=== PATIENT | female | born 1995 | race Caucasian/White ===

== ENCOUNTER 2019-01-30 14:04 | Observation (INO) | payer OTHER ==
[2019-01-30] MEDS ORDERED: DIPHENHYDRAMINE HCL 50 MG/ML VIAL IV ONE (14:50)
[2019-01-30] MEDS ORDERED: METOCLOPRAMIDE HCL INJ/PF 10 MG/2 ML SDV IV ONE (14:50)
--- NOTE | 2019-01-30 14:52 | ER Document Report ---
ED Medical Screen (RME) - General Chief Complaint: Abdominal Pain Stated Complaint: VOMITING Time Seen by Provider: 01/30/19 14:49 Mode of Arrival: Ambulatory Information source: Patient Notes: 23-year-old female presented to ED complaint of nausea vomiting diarrhea with stomach cramps since 10 AM. She states she is vomiting constantly having constant stools. She states she is not sure she is she is been off of her control for about 3 months. She states that she previously would get sick after her period every month and they put her on control to stop that but she is been off her control for 3 months at this time. She states she does not smoke drink or use any drugs. She has no medical history or surgical history except for what is already stated. She is alert oriented respirations regular and unlabored speaking in full sentences walks with even steady gait. TRAVEL OUTSIDE OF THE [place] IN LAST 30 DAYS: No - Related Data Allergies/Adverse Reactions: No Known Allergies Allergy (Verified 01/30/19 14:23) Physical Exam - Vital signs Vitals: Pulse Resp BP Pulse Ox 86 20 123/87 H 95 01/30/19 14:24 01/30/19 14:24 01/30/19 14:24 01/30/19 14:24 Course - Vital Signs Vital signs: Temp Pulse Resp BP Pulse Ox 86 20 123/87 H 95 01/30/19 14:24 01/30/19 14:24 01/30/19 14:24 01/30/19 14:24
--- NOTE | 2019-01-30 14:57 | ER Document Report ---
ED GI/ - General Chief Complaint: Abdominal Pain Stated Complaint: VOMITING Time Seen by Provider: 01/30/19 14:49 Mode of Arrival: Ambulatory Information source: Patient Notes: 23-year-old female presented to ED complaint of nausea vomiting diarrhea with stomach cramps since 10 AM. She states she is vomiting constantly having constant stools. She states she is not sure she is she is been off of her control for about 3 months. She states that she previously would get sick after her period every month and they put her on control to stop that but she is been off her control for 3 months at this time. She states she does not smoke drink or use any drugs. She has no medical history or surgical history except for what is already stated. She is alert oriented respirations regular and unlabored speaking in full sentences walks with even steady gait. TRAVEL OUTSIDE OF THE [place] IN LAST 30 DAYS: No - HPI Patient complains to provider of: Abdominal pain - Cramping when throwing up otherwise no pain, Diarrhea, Vomiting Onset: This morning Timing/Duration: Intermittent Quality of pain: Cramping Severity at maximum: Moderate Severity in ED: Moderate Pain Level: 3 Location: Epigastric, LUQ, LLQ, RUQ, RLQ Vaginal bleeding (Compared to normal period): None Associated symptoms: Diarrhea, Lightheaded, Nausea, Vomiting Exacerbated by: Denies Relieved by: Denies Similar symptoms previously: Yes Recently seen / treated by doctor: No - Related Data Allergies/Adverse Reactions: No Known Allergies Allergy (Verified 01/30/19 14:23) Past Medical History - General Information source: Patient - Social History Smoking Status: Never Smoker Frequency of alcohol use: None Drug Abuse: None Lives with: Family Family History: Reviewed & Not Pertinent Patient has suicidal ideation: No Patient has homicidal ideation: No - Past Medical History Cardiac Medical History: Reports: None Pulmonary Medical History: Reports: None EENT Medical History: Reports: None Neurological Medical History: Reports: None Endocrine Medical History: Reports: None Renal/ Medical History: Reports: None Malignancy Medical History: Reports: None GI Medical History: Reports: None Musculoskeletal Medical History: Reports None Skin Medical History: Reports None Psychiatric Medical History: Reports: None Traumatic Medical History: Reports: None Infectious Medical History: Reports: None Surgical Hx: Negative Past Surgical History: Reports: None - Immunizations Immunizations up to date: Yes Review of Systems - Review of Systems Constitutional: No symptoms reported EENT: No symptoms reported Cardiovascular: No symptoms reported Respiratory: No symptoms reported Gastrointestinal: Abdominal pain, Diarrhea, Nausea, Vomiting, Poor appetite Genitourinary: No symptoms reported Female Genitourinary: No symptoms reported Musculoskeletal: No symptoms reported Skin: No symptoms reported Hematologic/Lymphatic: No symptoms reported Neurological/Psychological: No symptoms reported -: Yes All other systems reviewed and negative Physical Exam - Vital signs Vitals: Pulse Resp BP Pulse Ox 86 20 123/87 H 95 01/30/19 14:24 01/30/19 14:24 01/30/19 14:24 01/30/19 14:24 Interpretation: Normal - General General appearance: Appears well, Alert - HEENT Head: Normocephalic, Atraumatic Eyes: Normal Pupils: PERRL - Respiratory Respiratory status: No respiratory distress Chest status: Nontender Breath sounds: Normal Chest palpation: Normal - Cardiovascular Rhythm: Regular Heart sounds: Normal auscultation Murmur: No - Abdominal Inspection: Normal Distension: No distension Bowel sounds: Hyperactive Tenderness: Tender Organomegaly: No organomegaly - Genitourinary External exam: Normal Speculum exam: Cervix closed, Vaginal discharge - white Vaginal bleeding: None Bimanuel exam: Normal - Back Back: Normal, Nontender - Extremities General upper extremity: Normal inspection, Nontender, Normal color, Normal ROM, Normal temperature General lower extremity: Normal inspection, Nontender, Normal color, Normal ROM, Normal temperature, Normal weight bearing. No: Jacqueline's sign - Neurological Neuro grossly intact: Yes Cognition: Normal Orientation: AAOx4 [place] Coma Scale Eye Opening: Spontaneous [place] Coma Scale Verbal: Oriented [place] Coma Scale Motor: Obeys Commands Yuri Coma Scale Total: 15 Speech: Normal Motor strength normal: LUE, RUE, LLE, RLE Sensory: Normal - Psychological Associated symptoms: Normal affect, Normal mood - Skin Skin Temperature: Warm Skin Moisture: Dry Skin Color: Normal Course - Re-evaluation Re-evalutation: 01/30/19 19:[address] Hong several times during this visit due to the elevated white count continue nausea and vomiting abdominal pain. He did come over and examined the patient we did do a CT abdomen and pelvis with IV contrast which was no acute changes. Ultrasound of upper abdominal was done with no acute fi ndings. She does have a elevated white count. I have spoken with the hospitalist who is going to admit her for intractable vomiting. - Vital Signs Vital signs: Temp Pulse Resp BP Pulse Ox 97.3 F 86 20 123/87 H 95 01/30/19 14:51 01/30/19 14:24 01/30/19 14:24 01/30/19 14:24 01/30/19 14:24 - Laboratory Result Diagrams: 01/30/19 15:25 01/30/19 15:25 Laboratory results interpreted by me: 01/30/19 01/30/19 01/30/19 15:25 15:25 16:03 WBC 23.7 H MCH 26.7 L RDW 14.4 H Seg Neuts % (Manual) 89 H Band Neutrophils % 2 L Lymphocytes % (Manual) 4 L Abs Neuts (Manual) 21.6 H Carbon Dioxide 20 L Glucose 156 H Total Protein 8.3 H Urine Protein 30 H Urine Ketones 80 H Ur Leukocyte Esterase SMALL H Urine Ascorbic Acid 40 H - Diagnostic Test Radiology reviewed: Image reviewed, Reports reviewed - Consults juaquin Time consulted: 19:28 Consulted provider: will see as inpatient Discharge - Discharge Clinical Impression: Intractable vomiting with nausea Qualifiers: Vomiting type: unspecified Qualified Code(s): R11.2 - Nausea with vomiting, unspecified Condition: Stable Disposition: ADMITTED INPATIENT Admitting Provider: Juaquin (Hospitalist) Unit Admitted: Medical Floor
[2019-01-30] MEDS: RINGERS SOLUTION,LACTATED 1,000 ML IV PRN ×2 (15:19→18:57)
[2019-01-30 15:57] LABS: ALBUMIN 4.9 g/dL (3.5-5.0); ALKALINE PHOSPHATASE 78 U/L (38-126); ANION GAP 16 (5-19); ASPARTATE AMINO TRANSFERASE 31 U/L (14-36); BILIRUBIN,DIRECT 0.2 mg/dL (0.0-0.4); BILIRUBIN,TOTAL 0.5 mg/dL (0.2-1.3); BLOOD UREA NITROGEN 13 mg/dL (7-20); CALCIUM 10.1 mg/dL (8.4-10.2); CARBON DIOXIDE 20 mmol/L (22-30); CHLORIDE 104 mmol/L (98-107); GLUCOSE 156 mg/dL (75-110); HEMATOCRIT 38.6 % (36.0-47.0); MEAN CORPUSCULAR HEMOGLOBIN 26.7 pg (27.0-33.4); MEAN CORPUSCULAR HGB CONC 33.6 g/dL (32.0-36.0); MEAN CORPUSCULAR VOLUME 80 fl (80-97); PLATELET COUNT 302 10^3/uL (150-450); RED BLOOD COUNT 4.85 10^6/uL (3.72-5.28); RED CELL DISTRIBUTION WIDTH 14.4 % (11.5-14.0); TOTAL PROTEIN 8.3 g/dL (6.3-8.2); WHITE BLOOD COUNT 23.7 10^3/uL (4.0-10.5)
[2019-01-30 16:28] LABS: APPEARANCE,URINE SLIGHTLY-CLOUDY; BILIRUBIN,URINE NEGATIVE (NEGATIVE); COLOR,URINE YELLOW; GLUCOSE, URINE NEGATIVE (NEGATIVE); KETONES,URINE 80 mg/dL (NEGATIVE); LEUKOCYTE ESTERASE,URINE SMALL (NEGATIVE); NITRITE,URINE NEGATIVE (NEGATIVE); PROTEIN,URINE 30 mg/dL (NEGATIVE); URINE SPECIFIC GRAVITY 1.027; UROBILINOGEN,URINE NEGATIVE mg/dL (<2.0)
[2019-01-30] MEDS ORDERED: ONDANSETRON HCL INJ/PF 4 MG/2 ML SDV IV ONE ×3 (16:31→19:29)
[2019-01-30 16:32] LABS: ABSOLUTE LYMPHOCYTES# (MANUAL) 0.9 10^3/uL (0.5-4.7); ABSOLUTE MONOCYTES # (MANUAL) 1.2 10^3/uL (0.1-1.4); ANISOCYTOSIS SLIGHT; BAND NEUTROPHILS % (MANUAL) 2 % (3-5); BASOPHILS % (MANUAL) 0 % (0-2); EOSINOPHILS % (MANUAL) 0 % (0-6); LYMPHOCYTES % (MANUAL) 4 % (13-45); MONOCYTES % (MANUAL) 5 % (3-13); PLATELET COMMENT ADEQUATE; SEGMENTED NEUTROPHILS % (MAN) 89 % (42-78); TOTAL CELLS COUNTED 100; TOXIC GRANULATION SLIGHT; TOXIC VACUOLATION PRESENT
[2019-01-30] MEDS ORDERED: PROMETHAZINE HCL 25 MG TABLET PO ONE (17:48)
[2019-01-30] MEDS ORDERED: PROMETHAZINE HCL 25 MG SUPP.RECT PR ONE (17:49)
--- NOTE | 2019-01-30 18:18 | RADIOLOGY REPORT (SQ) ---
EXAM DESCRIPTION: U/S ABDOMEN LIMITED W/O DOP COMPLETED DATE/TIME: 01/30/2019 5:54 pm REASON FOR STUDY: nvd upper abd pain COMPARISON: None. TECHNIQUE: Dynamic and static grayscale images acquired of the abdomen and recorded on PACS. Lexiio nai selected color Doppler and spectral images recorded. LIMITATIONS: None. FINDINGS: PANCREAS: No masses. Visualized pancreatic duct normal caliber. LIVER: No masses. Echotexture normal. LIVER VASCULATURE: Normal directional flow of the main portal vein and hepatic veins. GALLBLADDER: No stones. Normal wall thickness. No pericholecystic fluid. ULTRASOUND-DETECTED DE PAZ'S SIGN: Negative. INTRAHEPATIC DUCTS AND COMMON DUCT: CBD and intrahepatic ducts normal caliber. No filling defects. INFERIOR VENA CAVA: Normal flow. AORTA: No aneurysm. RIGHT KIDNEY: Normal size. Normal echogenicity. No solid or suspicious masses. No hydronephrosis. No calcifications. PERITONEAL AND RIGHT PLEURAL SPACE: No ascites or effusions. OTHER: No other significant findings. IMPRESSION: NORMAL RIGHT UPPER QUADRANT ULTRASOUND. TECHNICAL DOCUMENTATION: JOB ID: [id number]- All Rights Reserved Reading location - IP/workstation name: [email or web address]
[2019-01-30 18:58] LABS: BACTERIA (WET MOUNT) 3+ BACTERIA SEEN; T.VAGINALIS (WET MOUNT) NO TRICHOMONAS SEEN; WBCS (WET MOUNT) 2+ WBCS SEEN; YEAST (WET MOUNT) NO YEAST SEEN
--- NOTE | 2019-01-30 19:03 | RADIOLOGY REPORT (SQ) ---
EXAM DESCRIPTION: CT ABD/PELVIS WITH IV ONLY COMPLETED DATE/TIME: 01/30/2019 6:50 pm REASON FOR STUDY: abdominal pain nvd COMPARISON: None. TECHNIQUE: CT scan of the abdomen and pelvis performed using helical scanning technique with dynamic intravenous contrast injection. No oral contrast. Images reviewed with lung, soft tissue, and bone windows. Reconstructed coronal and sagittal MPR images reviewed. Delayed images for evaluation of the urinary system also acquired. All images stored on PACS. All CT scanners at this facility use dose modulation, iterative reconstruction, and/or weight based d osing when appropriate to reduce radiation dose to as low as reasonably achievable (ALARA). [facility]: Dose Right [facility]: CareDose [facility]: Dose Right [facility]: Teradose 4D [facility]: Proteus Agility CONTRAST TYPE AND DOSE: contrast/concentration: Isovue 350.00 mg/ml; Total Contrast Delivered: 74.0 ml; Total Saline Delivered: 67.0 ml RENAL FUNCTION: BUN 13; creatinine 0.64 RADIATION DOSE: CT Rad equipment meets quality standard of care and radiation dose reduction techniq ues were employed. CTDIvol: NaN - NaN mGy. DLP: 0 mGy-cm.. LIMITATIONS: None. FINDINGS: LOWER CHEST: No significant findings. No nodules or infiltrates. LIVER: Normal size. No masses. No dilated ducts. SPLEEN: Normal size. No focal lesions. PANCREAS: No masses. No significant calcifications. No adjacent inflammation or peripancreatic fluid collections. Pancreatic duct not dilated. GALLBLADDER: No identified stones by CT criteria. No inflammatory changes to suggest cholecystitis. ADRENAL GLANDS: No significant masses or asymmetry. RIGHT KIDNEY AND URETER: No solid masses. No significant calcifications. No hydronephrosis or hyd roureter. LEFT KIDNEY AND URETER: No solid masses. No significant calcifications. No hydronephrosis or hydr oureter. AORTA AND VESSELS: No aneurysm. No dissection. Renal arteries, SMA, celiac without stenosis. RETROPERITONEUM: No retroperitoneal adenopathy, hemorrhage or masses. BOWEL AND PERITONEAL CAVITY: No masses or inflammatory changes. No free fluid or peritoneal masses. APPENDIX: Not visualized. PELVIS: No mass. No free fluid. Normal bladder. Incidental note is made of an involuting corpus pernell teum within the right adnexa. A dominant follicle seen within the left adnexa. The uterus is unrema rkable. ABDOMINAL WALL: No masses. No hernias. BONES: No significant or acute findings. OTHER: No other significant finding. IMPRESSION: No evidence of acute intra-abdominal infectious/inflammatory process. Incidental note i s made of an involuting corpus luteum within the right adnexa and a dominant follicle within the left adnexa. TECHNICAL DOCUMENTATION: JOB ID: [id number] Quality ID # [id number]: Final reports with documentation of one or more dose reduction techniques (e.g., Au tomated exposure control, adjustment of the mA and/or kV according to patient size, use of iterative reconstruction technique) 2010 [email or web address]- All Rights Reserved Reading location - IP/workstation name: [email or web address]
[2019-01-30] MEDS ORDERED: NORMAL SALINE 1000 ML 1,000 ML IV ONE (19:29)
[2019-01-30 20:21] LABS: CHLAM PCR NOT DETECTED (NOT DETECT)
[2019-01-30] MEDS ORDERED: ACETAMINOPHEN 650 MG SUPP.RECT PR PRN (20:28)
[2019-01-30] MEDS ORDERED: NALBUPHINE HCL INJ 10 MG/1 ML AMPULE IV PRN ×2 (20:28→22:00)
[2019-01-30] MEDS ORDERED: CHLORPROMAZINE HCL INJ 25 MG/1 ML AMPULE IV PRN ×2 (20:28→22:00)
[2019-01-30] MEDS: FAMOTIDINE INJ/PF 20 MG/2 ML SDV IV SCH (21:51)
[2019-01-30] MEDS: HEPARIN SOD (PORCINE) 5,000 UNIT/ML 1 ML VIAL SUBCUT SCH (21:51)
--- NOTE | 2019-01-30 22:31 | PDOC H&P ---
History of Present Illness Admission Date/PCP: 01/30/19 19:40 No local PCP Patient complains of: Vomiting History of Present Illness: CHAYO MAC is a 23 year old female who presented to the emergency room with acute vomiting since 10 AM on the day of admission. The patient admits the sudden onset of severe nausea and vomiting with very frequent diarrhea stools beginning this morning. Her nausea vomiting and diarrhea have been associated with moderately severe crampy generalized abdominal pain without radiation as well as anorexia. She is unable to keep down any liquids or solids and any attempted ingestion results and had immediate vomiting. She admits prior similar episodes but not this severe. She has not identified any additional aggravating or ameliorating factors for her nausea vomiting and diarrhea. In the emergency room she was found to have a 23,700 white blood count with remainder of her laboratory evaluation being essentially unremarkable. She was given IV fluids and numerous antiemetics but was still unable to tolerate taking oral fluids. Her nausea and vomiting persisted despite antiemetics and she was subsequently admitted to hospital for her intractable vomiting. 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 Denies: Chronic Kidney Disease, Nephrolithiasis Malignancy Medical History: Reports: None GI Medical History: Denies: Cirrhosis, Crohn's Disease, Hepatitis, Peptic Ulcer Disease, Ulcerative Colitis Musculoskeltal Medical History: Denies: Arthritis, Fibromyalgia Skin Medical History: Denies: Eczema, Psoriasis Psychiatric Medical History: Denies: Alcohol Dependency, Substance Abuse, Tobacco Dependency Traumatic Medical History: Reports: None Hematology: Denies: Anemia, Bleeding Tendencies Infectious Medical History: Reports: None Past Surgical History Past Surgical History: Reports: None Social History Information Source: Patient Lives with: Family Smoking Status: Never Smoker Frequency of Alcohol Use: None Hx Recreational Drug Use: No Drugs: None Hx Prescription Drug Abuse: No - Advance Directive Resuscitation Status: Full Code Surrogate healthcare decision maker:: Obey Farmer Family History Family History: DM, Other - Hypoglycemia. denies: CAD, CVA, Hypertension, Malignancy, Thyroid Disfunction Parental Family History Reviewed: Yes Children Family History Reviewed: No Sibling(s) Family History Reviewed.: Yes Medication/Allergy Home Medications: No Home Medications 01/30/19 Allergies/Adverse Reactions: No Known Allergies Allergy (Verified 01/30/19 14:23) Review of Systems Constitutional: PRESENT: as per HPI, anorexia. ABSENT: chills, fever(s) Eyes: ABSENT: visual disturbances, other - Eye pain Ears: ABSENT: hearing changes, other - Ear pain Nose, Mouth, and Throat: ABSENT: mouth pain, sore throat Cardiovascular: ABSENT: chest pain, palpitations Respiratory: ABSENT: cough, dyspnea Gastrointestinal: PRESENT: as per HPI, abdominal pain, diarrhea, nausea, vomiting. ABSENT: constipation, hematemesis, hematochezia Genitourinary: ABSENT: dysuria, hematuria Musculoskeletal: ABSENT: back pain, joint swelling, muscle weakness Integumentary: ABSENT: lesions, pruritus Neurological: ABSENT: confusion, convulsions, focal weakness, memory loss, syncope Psychiatric: ABSENT: anxiety, depression Endocrine: ABSENT: cold intolerance, heat intolerance Hematologic/Lymphatic: ABSENT: easy bleeding, easy bruising Allergic/Immunologic: ABSENT: seasonal rhinorrhea Physical Exam Vital Signs: Temp Pulse Resp BP Pulse Ox 97.3 F 86 20 123/87 H 95 01/30/19 14:51 01/30/19 14:24 01/30/19 14:24 01/30/19 14:24 01/30/19 14:24 Intake & Output 01/28/19 01/29/19 01/30/19 23:59 23:59 23:59 Intake Total 1999 Balance 1999 Weight 65.5 kg General appearance: PRESENT: cooperative, mild distress - Secondary to abdominal discomfort Head exam: PRESENT: atraumatic, normocephalic Eye exam: PRESENT: conjunctiva pink. ABSENT: conjunctival injection, scleral icterus Ear exam: PRESENT: normal external ear exam. ABSENT: bleeding, drainage Mouth exam: PRESENT: dry mucosa, neck supple Neck exam: ABSENT: thyromegaly, tracheal deviation Respiratory exam: PRESENT: clear to auscultation alfonso, symmetrical, unlabored Cardiovascular exam: PRESENT: RRR. ABSENT: clicks, gallop, rubs Pulses: PRESENT: normal radial pulses, normal dorsalis pedis pul Vascular exam: PRESENT: normal capillary refill. ABSENT: pallor GI/Abdominal exam: PRESENT: hypoactive bowel sounds, soft, tenderness - Generalized tenderness to palpation Rectal exam: PRESENT: deferred Extremities exam: ABSENT: joint swelling, pedal edema Musculoskeletal exam: PRESENT: full ROM, normal inspection Neurological exam: PRESENT: alert, oriented to person, oriented to place, oriented to time, oriented to situation, CN II-XII grossly intact. ABSENT: motor sensory deficit Psychiatric exam: PRESENT: appropriate affect, normal mood Skin exam: PRESENT: dry, intact, warm. ABSENT: jaundice, rash, urticaria Results Laboratory Results: 01/30/19 15:25 01/30/19 15:25 01/30/19 01/30/19 01/30/19 11:11 15:25 15:25 WBC 23.7 H RBC 4.85 Hgb 13.0 Hct 38.6 MCV 80 MCH 26.7 L MCHC 33.6 RDW 14.4 H Plt Count 302 Seg Neutrophils % Not Reportable Lymphocytes % Not Reportable Monocytes % Not Reportable Eosinophils % Not Reportable Basophils % Not Reportable Absolute Neutrophils Not Reportable Absolute Lymphocytes Not Reportable Absolute Monocytes Not Reportable Absolute Eosinophils Not Reportable Absolute Basophils Not Reportable Sodium 139.8 Potassium 4.0 Chloride 104 Carbon Dioxide 20 L Anion Gap 16 BUN 13 Creatinine 0.64 Est GFR ( Amer) > 60 Est GFR (Non-Af Amer) > 60 Glucose 156 H Calcium 10.1 Total Bilirubin 0.5 AST 31 Alkaline Phosphatase 78 Total Protein 8.3 H Albumin 4.9 Lipase 78.8 Urine Color Urine Appearance Urine pH Ur Specific [place] Urine Protein Urine Glucose (UA) Urine Ketones Urine Blood Urine Nitrite Ur Leukocyte Esterase Urine WBC (Auto) Urine RBC (Auto) 01/30/19 16:03 WBC RBC Hgb Hct MCV MCH MCHC RDW Plt Count Seg Neutrophils % Lymphocytes % Monocytes % Eosinophils % Basophils % Absolute Neutrophils Absolute Lymphocytes Absolute Monocytes Absolute Eosinophils Absolute Basophils Sodium Potassium Chloride Carbon Dioxide Anion Gap BUN Creatinine Est GFR ( Amer) Est GFR (Non-Af Amer) Glucose Calcium Total Bilirubin AST Alkaline Phosphatase Total Protein Albumin Lipase Urine Color YELLOW Urine Appearance SLIGHTLY-CLOUDY Urine pH 6.0 Ur Specific [place] 1.027 Urine Protein 30 H Urine Glucose (UA) NEGATIVE Urine Ketones 80 H Urine Blood NEGATIVE Urine Nitrite NEGATIVE Ur Leukocyte Esterase SMALL H Urine WBC (Auto) 4 Urine RBC (Auto) 1 Impressions: Abdomen Ultrasound 01/30/19 16:51 IMPRESSION: NORMAL RIGHT UPPER QUADRANT ULTRASOUND. Abdomen/Pelvis CT 01/30/19 18:18 IMPRESSION: No evidence of acute intra-abdominal infectious/inflammatory process. Incidental note is made of an involuting corpus luteum within the right adnexa and a dominant follicle within the left adnexa. Assessment and Plan - Diagnosis (1) Intractable vomiting with nausea Qualifiers: Vomiting type: unspecified Qualified Code(s): R11.2 - Nausea with vomiting, unspecified Is this a current diagnosis for this admission?: Yes Plan: Patient be treated with IV fluids and Thorazine 25 mg IV every 8 hours on a as needed basis for nausea and vomiting. Patient will be observed closely throughout her hospital course. Serial laboratory of CBC, metabolic profile and magnesium levels will be obtained. (2) Abdominal pain Qualifiers: Abdominal location: generalized Qualified Code(s): R10.84 - Generalized abdominal pain Is this a current diagnosis for this admission?: Yes Plan: Patient's abdominal pain will be treated with Nubain 10 mg IV every 3 hours on an as needed basis. (3) Diarrhea Qualifiers: Diarrhea type: unspecified type Qualified Code(s): R19.7 - Diarrhea, unspecified Is this a current diagnosis for this admission?: Yes Plan: Patient's diarrhea will be treated symptomatically by providing IV fluid rehydration and maintenance support. Diarrhea will be observed closely and further intervention will be undertaken as required. (4) Leukocytosis, unspecified Qualifiers: Leukocytosis type: unspecified Qualified Code(s): D72.829 - Elevated white blood cell count, unspecified Is this a current diagnosis for this admission?: Yes Plan: Patient's CBC will be monitored on a daily basis. - Time Time Spent with patient: 15-24 minutes Medications reviewed and adjusted accordingly: Yes Anticipated discharge: Home - Inpatient Certification Based on my medical assessment, after consideration of the patient's comorbidities, presenting symptoms, or acuity I expect that the services needed warrant INPATIENT care.: Yes I certify that my determination is in accordance with my understanding of Medicare's requirements for reasonable and necessary INPATIENT services [42 CFR 412.3e].: Yes Medical Necessity: Need Close Monitoring Due to Risk of Patient Decompensation, Need For IV Fluids, Need for Pain Control, Risk of Complication if Not Cared For in Hospital
--- NOTE | 2019-01-30 22:34 | ADVANCED CARE ---
- Diagnosis (1) Intractable vomiting with nausea Diagnosis Current: Yes (2) Abdominal pain Diagnosis Current: Yes (3) Diarrhea Diagnosis Current: Yes (4) Leukocytosis, unspecified Diagnosis Current: Yes Attendance: The patient and myself. Resuscitation Status: Full Code Discussion: Patient is expressed her wish to remain full code as her resuscitation status for this admission. She has designated Obey Farmer, her , as her designated surrogate medical decision-maker. Care Planning Goals: 1. Patient is full CODE STATUS for this admission. 2. Obey Farmer is her designated surrogate medical decision-maker. Document(s) Completed: The following entries will be made to the patient's permanent medical record utilizing this EMR entry: 1. Patient is full CODE STATUS for this admission. 2. Obey Farmer is her designated surrogate medical decision-maker. Time Spent: 2 minutes
[2019-01-30 23:35] LABS: FREE T3 3.61 pg/mL (2.77-5.27); FREE T4 (FREE THYROXINE) 1.06 ng/dL (0.78-2.19)
[2019-01-30 23:49] LABS: THYROID STIMULATING HORMONE 0.77 uIU/mL (0.47-4.68)
[2019-01-31] MEDS: RINGERS SOLUTION,LACTATED 1,000 ML IV PRN ×2 (00:59→07:59)
[2019-01-31] MEDS: HEPARIN SOD (PORCINE) 5,000 UNIT/ML 1 ML VIAL SUBCUT SCH ×2 (05:10→13:08)
[2019-01-31 06:12] LABS: HEMATOCRIT 34.1 % (36.0-47.0); HEMOGLOBIN 11.4 g/dL (12.0-15.5); MEAN CORPUSCULAR HEMOGLOBIN 26.7 pg (27.0-33.4); MEAN CORPUSCULAR HGB CONC 33.3 g/dL (32.0-36.0); MEAN CORPUSCULAR VOLUME 80 fl (80-97); PLATELET COUNT 250 10^3/uL (150-450); RED BLOOD COUNT 4.25 10^6/uL (3.72-5.28); RED CELL DISTRIBUTION WIDTH 14.6 % (11.5-14.0); WHITE BLOOD COUNT 14.9 10^3/uL (4.0-10.5)
[2019-01-31 06:38] LABS: ANION GAP 8 (5-19); BLOOD UREA NITROGEN 7 mg/dL (7-20); CALCIUM 8.9 mg/dL (8.4-10.2); CARBON DIOXIDE 24 mmol/L (22-30); CHLORIDE 108 mmol/L (98-107); GLUCOSE 73 mg/dL (75-110); POTASSIUM 3.8 mmol/L (3.6-5.0)
[2019-01-31] MEDS: FAMOTIDINE INJ/PF 20 MG/2 ML SDV IV SCH (09:16)
[2019-01-31 11:46] VITALS: BP 115/72
--- NOTE | 2019-02-01 17:11 | PDOC DISCHARGE SUMMARY ---
General - Admit/Disc Date/PCP Admission Date/Primary Care Provider: 01/30/19 19:40 Discharge Date: 01/31/19 - Discharge Diagnosis (1) Acute gastroenteritis Is this a current diagnosis for this admission?: Yes (2) Diarrhea Is this a current diagnosis for this admission?: Yes (3) Intractable vomiting with nausea Is this a current diagnosis for this admission?: Yes - Additional Information Resuscitation Status: Do Not Intubate Discharge Diet: Clear Liquids Discharge Activity: Activity As Tolerated Prescriptions: Famotidine [Pepcid] 20 mg PO QAM #7 tablet Home Medications: Famotidine [Pepcid] 20 mg PO QAM #7 tablet 01/31/19 History of Present Illness History of Present Illness: Admitting hospitalist' H&P: CHAYO MAC is a 23 year old female who presented to the emergency room with acute vomiting since 10 AM on the day of admission. The patient admits the sudden onset of severe nausea and vomiting with very frequent diarrhea stools beginning this morning. Her nausea vomiting and diarrhea have been associated with moderately severe crampy generalized abdominal pain without radiation as well as anorexia. She is unable to keep down any liquids or solids and any attempted ingestion results and had immediate vomiting. She admits prior similar episodes but not this severe. She has not identified any additional aggravating or ameliorating factors for her nausea vomiting and diarrhea. In the emergency room she was found to have a 23,700 white blood count with remainder of her laboratory evaluation being essentially unremarkable. She was given IV fluids and numerous antiemetics but was still unable to tolerate taking oral fluids. Her nausea and vomiting persisted despite antiemetics and she was subsequently admitted to hospital for her intractable vomiting. Hospital Course Hospital Course: Patient is a 23-year-old healthy female who presented with nausea, vomiting and diarrhea. She was started on IV fluids. Her nausea and vomiting did resolve overnight. C. difficile negative. She had watery stools which did improve on discharge the next day. Physical Exam Vital Signs: Temp Pulse Resp BP Pulse Ox 98.8 F 80 16 115/72 97 01/31/19 14:21 01/31/19 14:21 01/31/19 14:21 01/31/19 14:21 01/31/19 14:21 Intake & Output 01/31/19 02/01/19 02/02/19 06:59 06:59 06:59 Intake Total 4000 120 Balance 4000 120 Weight 153 lb 7.068 oz General appearance: PRESENT: no acute distress, well-developed, well-nourished Head exam: PRESENT: atraumatic, normocephalic Eye exam: PRESENT: conjunctiva pink, EOMI, PERRLA. ABSENT: scleral icterus Ear exam: PRESENT: normal external ear exam Mouth exam: PRESENT: moist, tongue midline Neck exam: ABSENT: carotid bruit, JVD, lymphadenopathy, thyromegaly Respiratory exam: PRESENT: clear to auscultation alfonso. ABSENT: rales, rhonchi, wheezes Cardiovascular exam: PRESENT: RRR. ABSENT: diastolic murmur, rubs, systolic mur mur Pulses: PRESENT: normal dorsalis pedis pul GI/Abdominal exam: PRESENT: normal bowel sounds, soft. ABSENT: distended, guarding, mass, organolmegaly, rebound, tenderness Rectal exam: PRESENT: deferred Extremities exam: PRESENT: full ROM. ABSENT: calf tenderness, clubbing, pedal edema Neurological exam: PRESENT: alert, awake, oriented to person, oriented to place, oriented to time, oriented to situation, CN II-XII grossly intact. ABSENT: motor sensory deficit Results Laboratory Results: 01/31/19 05:02 01/31/19 05:02 01/30/19 16:03 Clean Catch Midstream Urine Culture - Final Mixed Urogenital Alcira Impressions: Abdomen Ultrasound 01/30/19 16:51 IMPRESSION: NORMAL RIGHT UPPER QUADRANT ULTRASOUND. Abdomen/Pelvis CT 01/30/19 18:18 IMPRESSION: No evidence of acute intra-abdominal infectious/inflammatory process. Incidental note is made of an involuting corpus luteum within the right adnexa and a dominant follicle within the left adnexa. Qualifiers - * PATIENT BEING DISCHARGED WITH ANY OF THE FOLLOWING DIAGNOSIS: No Acute Heart Failure - Is this a Heart Failure Patient?: No LVEF < 40%?: No- if no continue to question #3 3. Anticoagulant therapy for permanect/persistent/paraoxysmal Afib or Aflutter: N/A
== END 2019-01-31 14:48 | disposition home or self-care (01) ==
LOC: ER 14:04 → EH 19:40 → INTOOBSV 19:40 → 4S 21:40
PROVIDERS: ADMIT Emergency Medicine; ATTEND Emergency Medicine
DX: K52.9 Noninfective gastroenteritis and colitis, unspecified (principal); R11.2 Nausea with vomiting, unspecified; R63.0 Anorexia; R42 Dizziness and giddiness; Z83.3 Family history of diabetes mellitus; Z32.00 Encounter for pregnancy test, result unknown
CPT/HCPCS: 96376; 99285; 96361; 96374; 96375; 36415 ×2; 87045; 87086; 84439; 87205; 87210; 84702; 83690; 83735; 84443; 85025; 85027; 80048; 80053; 81001; 84481; 83036; 87493; 87491; 87591; 76705; 74177; G0378 ×2; J1644 ×2; J3230; J1200; J2765; J3490 ×2; J2405; J7030; J7120 ×2; S0028 ×2

== ENCOUNTER 2020-03-08 06:51 | Day surgery (SDC) | payer OTHER ==
[2020-03-08] MEDS ORDERED: PROPOFOL INJ 200 MG/20 ML VIAL IV ONE (07:50)
--- NOTE | 2020-03-08 08:56 | Operative Report ---
Operative Report DATE OF SURGERY: 03/08/20 Operative Report: The risks benefits and alternatives of the procedure explained to the patient in detail and informed consent is obtained.A GIF Olympus video scope was inserted into the patient's mouth and hypopharynx, the esophagus is identified intubated and insufflated, the scope was then advanced through the esophagus stomach and duodenum, retroflexion maneuver is done, the esophagus stomach and first and second portions of the duodenum examined PREOPERATIVE DIAGNOSIS: Epigastric pain POSTOPERATIVE DIAGNOSIS: Duodenitis status post biopsy rule out celiac disease. Gastritis status post biopsy rule out Helicobacter pylori OPERATION: EGD with biopsy SURGEON: PIYUSH SINCLAIR ANESTHESIA: LMAC TISSUE REMOVED OR ALTERED: As noted above COMPLICATIONS: None. ESTIMATED BLOOD LOSS: None. INTRAOPERATIVE FINDINGS: As noted above. PROCEDURE: Patient tolerated the procedure well. No immediate postprocedure complications are noted. Patient is discharged in good condition. Discharge date 03/08/2020. Discharge diet: Regular. Discharge activity: Regular. 2 to 3-week follow-up to discuss findings. Patient is instructed call the office or proceed to the emergency room should there be any further problems or questions. Wait on the pathology.
[2020-03-08 11:28] VITALS: BP 97/60
== END 2020-03-08 10:30 | disposition home or self-care (01) ==
LOC: END 06:51 → EDBD 09:00 → END 10:30
PROVIDERS: ATTEND Internal Medicine Gastroenterology
DX: K29.50 Unspecified chronic gastritis without bleeding (principal); K29.80 Duodenitis without bleeding; R11.14 Bilious vomiting; Z68.25 Body mass index [BMI] 25.0-25.9, adult; Z79.899 Other long term (current) drug therapy; Z03.818 Encounter for observation for suspected exposure to other biological agents ruled out
CPT/HCPCS: 43239; 87635; 81025; 88342 ×2; 88305 ×2; 00731; J2704; C9803; 731

== ENCOUNTER → 2020-03-15 | Outpatient (CLI) | payer OTHER ==
--- NOTE | 2020-03-15 13:30 | RADIOLOGY REPORT (SQ) ---
EXAM DESCRIPTION: U/S ABDOMEN LIMITED W/O DOP IMAGES COMPLETED DATE/TIME: 03/15/2020 11:47 am REASON FOR STUDY: NAUSEA AND VOMTING R11.14 BILIOUS VOMITING COMPARISON: 01/30/2019 TECHNIQUE: Dynamic and static grayscale images acquired of the abdomen and recorded on PACS. Additio nal selected color Doppler and spectral images recorded. LIMITATIONS: None. FINDINGS: PANCREAS: No masses. Visualized pancreatic duct normal caliber. LIVER: No masses. Echotexture normal. LIVER VASCULATURE: Normal directional flow of the main portal vein and hepatic veins. GALLBLADDER: No stones. Normal wall thickness. No pericholecystic fluid. ULTRASOUND-DETECTED DE PAZ'S SIGN: Negative. INTRAHEPATIC DUCTS AND COMMON DUCT: CBD and intrahepatic ducts normal caliber. No filling defects. AORTA: No aneurysm. RIGHT KIDNEY: Normal size, 10.2 cm. Normal echogenicity. No solid or suspicious masses. No hydroneph rosis. No calcifications. PERITONEAL AND RIGHT PLEURAL SPACE: No ascites or effusions. OTHER: No other significant findings. IMPRESSION: NORMAL RIGHT UPPER QUADRANT ULTRASOUND. TECHNICAL DOCUMENTATION: JOB ID: [id number] 2010 [employer]- All Rights Reserved Reading location - IP/workstation name: [email or web address]
--- NOTE | 2020-03-15 13:32 | RADIOLOGY REPORT (SQ) ---
EXAM DESCRIPTION: NM HIDA SCAN WITH CCK IMAGES COMPLETED DATE/TIME: 03/15/2020 1:11 pm REASON FOR STUDY: NAUSEA AND VOMTING R11.14 BILIOUS VOMITING COMPARISON: None. RADIONUCLIDE AND DOSE: DOSAGE RADIONUCLIDE: 5 millicuries Tc99m Mebrofenin. DOSAGE CCK: 1.3 micrograms. DOSAGE MORPHINE: Not required. The route of agent administration: Intravenous TECHNIQUE: Serial imaging right upper quadrant up to 60 minutes following injection of radionuclide. CCK injected after gallbladder visualized. LIMITATIONS: None. FINDINGS: LIVER: Normal visualization without areas of photopenia. INTRAHEPATIC BILE DUCTS: Normal size and no delay in visualization. COMMON BILE DUCT: Normal without dilatation. GALLBLADDER: Normal visualization. Calculated ejection fraction of 29%. Normal range is greater th an 35%. PHYSICAL RESPONSE: Patients presenting complaint was not reproduced. OTHER: No other significant finding. IMPRESSION: There is mild delayed gallbladder emptying with ejection fraction of 29% where 35% is co nsidered normal. Patient's symptoms were not reproduced with CCK administration. TECHNICAL DOCUMENTATION: JOB ID: [id number] 2010 [employer]- All Rights Reserved Reading location - IP/workstation name: [email or web address]
== END ==
LOC: RAD 11:11
PROVIDERS: ATTEND Internal Medicine Gastroenterology
DX: R11.14 Bilious vomiting (principal)
CPT/HCPCS: 76705; 78227; J2805; A9537; Q9969